=== PATIENT | female | born 1980 | race Caucasian/White ===

== ENCOUNTER → 2018-06-28 | Outpatient (CLI) | payer BC ==
[~2018-06-28] MED LIST: PRENATAL1 TA1 PO
== END ==
LOC: MC.RAD 10:56
DX: Z12.31 Encounter for screening mammogram for malignant neoplasm of breast (principal); N64.89 Other specified disorders of breast

== ENCOUNTER → 2018-07-04 | Outpatient (CLI) | payer BC | LOC: MC.RAD 13:56 | DX: N60.01 Solitary cyst of right breast (principal); N64.89 Other specified disorders of breast ==

== ENCOUNTER → 2019-08-28 | Outpatient (CLI) | payer BC | LOC: MC.RAD 11:30 | DX: Z12.31 Encounter for screening mammogram for malignant neoplasm of breast (principal); R92.2 Inconclusive mammogram; N63.11 Unspecified lump in the right breast, upper outer quadrant ==

== ENCOUNTER → 2019-09-04 | Outpatient (CLI) | payer BC | LOC: MC.RAD 11:10 | DX: N60.11 Diffuse cystic mastopathy of right breast (principal) ==

== ENCOUNTER → 2021-09-22 | Outpatient (CLI) | payer BC | LOC: MC.RAD 16:40 | DX: Z12.31 Encounter for screening mammogram for malignant neoplasm of breast (principal); N63.10 Unspecified lump in the right breast, unspecified quadrant ==

== ENCOUNTER → 2021-09-28 | Outpatient (CLI) | payer BC | LOC: MC.RAD 14:00 | DX: Z12.31 Encounter for screening mammogram for malignant neoplasm of breast (principal); N60.01 Solitary cyst of right breast ==